=== PATIENT | female | born 1990 | race Caucasian/White ===

== ENCOUNTER 2018-05-29 09:50 | Emergency (ER) | payer BC, SELFPAY ==
[2018-05-29 09:51] VITALS: BP 108/56; PULSE 84; RESP 18; TEMP 36.8; O2SAT 99; BMI 25.4
--- NOTE | 2018-05-29 10:03 | ED.VISSUMM ---
- ER Visit Summary Date of Service: 05/29/18 Chief Complaint: Left leg swelling History of Present Illness: The patient is a 28 F who presents with left leg swelling that has been getting worse over the past 2 days. Patient states she has some mild pain in her left calf. Patient denies any paresthesias or weakness. Patient states her pain is worse with ambulation. Patient states her pain improves with rest. Patient denies any fevers or chills. Patient states she is approximately 10 weeks . Physical Examination: Vital signs are stable. Patient is afebrile. Patient is in no acute distress. Musculoskeletal exam revealed edema of the left lower leg. There is some tenderness with compression of the calf. There is no pain with dorsiflexion of the ankle. Pedal pulses are equal bilaterally. There are no sensory deficits noted. There is good range of motion of the left ankle and left knee. The remaining physical exam is within normal limits. Test Results: Venous duplex of the left lower extremity was obtained. There is no evidence of DVT. Emergency Department Course and Treatment: Patient was instructed to elevate her legs. Patient was instructed to follow-up with her primary care physician and MEDICAL STAFFING COORDINATOR as scheduled. Patient understood and was agreeable with the plan. All questions were answered. Disposition: Discharged home Impression: Left leg edema This note was generated with Snipd dictation software. It may contain incorrect words, spelling, and punctuation that were not noted in review of the chart prior to signing ED Disposition - Plan for ED Patient: Disposition: Home or Assisted Living Chief Complaint: Edema Diagnosis: Leg edema, left Instructions: ED Leg Swelling Unilateral Referrals: NOT,DEFINED [NON-STAFF] -
--- NOTE | 2018-05-29 10:06 | NURSING ---
CALLED COMPLAINT COORDINATOR ABOUT VENOUS DOPPLER ORDERED
--- NOTE | 2018-05-29 10:06 | NURSING ---
KURT MALDONADO, CALLED. SHE WILL BE HERE SHORTLY
--- NOTE | 2018-05-29 10:36 | NURSING ---
VASCULAR LAB HERE
== END 2018-05-29 11:29 | disposition home or self-care (01) ==
PROVIDERS: Emergency Provider Emergency Medicine
DX: O12.01 Gestational edema, first trimester (principal); O99.281 Endocrine, nutritional and metabolic diseases complicating pregnancy, first trimester; E03.9 Hypothyroidism, unspecified; Z3A.10 10 weeks gestation of pregnancy; Z79.899 Other long term (current) drug therapy
CPT/HCPCS: 93971; 99282

== ENCOUNTER → 2018-10-14 10:53 | Outpatient (CLI) | payer BC, SELFPAY ==
[2018-10-14 09:57] VITALS: BMI 29.7
[2018-10-14 12:17] LABS: Absolute Lymphocyte Count 2.21 X10^3/ul (0.83-4.51); Absolute Neutrophil Count 8.6 X10^3/uL (2.0-7.7); Basophil# 0.02 X10^3/uL; Basophil% 0.2 % (0-1); Eosinophils% 0.9 % (0-5); Hematocrit 34.7 % (37-47); Hemoglobin 11.5 g/dl (12.0-15.0); Lymphocyte # 2.21 X10^3/ul (4.0); Lymphocyte % 19.1 % (19-41); Mean Corp Hgb Conc 33.1 g/gl (32-36); Mean Corpuscular Hgb 31.9 pg (27.0-32.0); Mean Corpuscular Volume 96.1 fL (81-99); Mean Platelet Vol. 10.1 fl (6.2-12.0); Monocyte# 0.55 X10^3/uL; Monocyte% 4.8 % (0-10); Neutrophil # 8.64 X10^3/uL (2.7-7.7); Neutrophil % 74.7 % (47-70); Platelet Count 272 K/mm3 (150-450); RBC Distribution Width CV 13.4 % (11.6-14.6); RBC Distribution Width SD 47.1 fl (35.1-43.9); Red Blood Count 3.61 M/mm3 (4.2-5.4); White Blood Count 11.6 K/mm3 (4.4-11.0)
[2018-10-14 12:25] LABS: POSITIVE COUNT NO; POSITIVE DIFFERENTIAL NO; POSITIVE MORPHOLOGY NO
[2018-10-14 12:36] LABS: Glucose Challenge Gest 1H 50g 121 mg/dL (70-140)
== END ==
PROVIDERS: Referring Provider Obstetrics & Gynecology; Visit Provider Obstetrics & Gynecology
DX: Z34.83 Encounter for supervision of other normal pregnancy, third trimester (principal)
CPT/HCPCS: 36415; 82950; 85025

== ENCOUNTER → 2018-12-02 17:53 | Outpatient (CLI) | payer BC, SELFPAY ==
[2018-12-02 14:26] VITALS: BMI 30.8
== END ==
PROVIDERS: Referring Provider Obstetrics & Gynecology; Visit Provider Obstetrics & Gynecology
DX: Z34.90 Encounter for supervision of normal pregnancy, unspecified, unspecified trimester (principal)
CPT/HCPCS: 87081

== ENCOUNTER → 2019-01-03 15:00 | Outpatient (CLI) | payer BC, SELFPAY ==
[2019-01-02 14:05] VITALS: BMI 32.2
--- NOTE | 2019-01-03 15:02 | US_ITS ---
STUDY: SECOND AND THIRD TRIMESTER OBSTETRICAL ULTRASOUND - LIMITED REASON FOR EXAM: Female, 28 years old. growth PRIOR ULTRASOUND: None. TECHNIQUE: Transabdominal ultrasound evaluation was performed. FINDINGS: There is a single intrauterine fetus. The fetus is in a cephalic presentation. There is demonstrated cardiac activity with a heart rate of 130 bpm. There is a normal amniotic fluid volume. The largest amniotic fluid pocket measures 4 cm. The amniotic fluid index (JUDI) is 9.1 cm. The placenta is fundal in location. There are Grade 3 placental changes. The cervix is not visualized. BIOMETRY: BPD: 9.34 cm: 38 weeks, 1 days HC: 34.21 cm: 39 weeks, 4 days AC: 35.31 cm: 39 weeks, 2 days FL: 7.24 cm: 37 weeks, 1 days age by current US: 38 weeks, 4 days. NUZHAT by current US: 01/13/2019. Estimated weight: 3547 grams, +/- 518 grams. US/OB Limited With Biometrics IMPRESSION: Single live intrauterine gestation at approximately 38 weeks and 4 days based on the current ultrasound. Electronically Signed: Willian Dorado, at 15:42 EDT Tel , Service support ,
== END ==
PROVIDERS: Visit Provider Obstetrics & Gynecology
DX: O48.0 Post-term pregnancy (principal); Z3A.00 Weeks of gestation of pregnancy not specified
CPT/HCPCS: 76816

== ENCOUNTER 2019-01-06 07:40 | Inpatient (IN) | payer BC, SELFPAY ==
[2018-12-09 10:00] VITALS: BMI 30.8
[2019-01-02 14:05] VITALS: BMI 32.2
[2019-01-03 15:47] VITALS: BMI 32.2
--- NOTE | 2019-01-06 06:44 | US_ITS ---
STUDY: OBSTETRICAL ULTRASOUND - BIOPHYSICAL PROFILE REASON FOR EXAM: Female, 28 years old. WELL BEING JUDI LMP: 03/22/2018 PRIOR ULTRASOUND: None. TECHNIQUE: Transabdominal TECHNICAL QUALITY: Adequate. FINDINGS: There is a single intrauterine fetus. The fetus is in a cephalic presentation. There is demonstrated cardiac activity with a heart rate of 124 bpm. There is a normal amniotic fluid volume. The largest amniotic fluid pocket measures 2.7 cm. The amniotic fluid index (JUDI) is 8.3 cm. The placenta is fundal in location. There are Grade 0 placental changes. Age by LMP: 41 weeks, 3 days. NUZHAT by LMP: 12/27/2018. age by prior US: 39 weeks, 0 days. NUZHAT by prior US: 01/13/2019. BIOPHYSICAL PROFILE: Breathing Movements (FBM): 0 Gross Body Movements (GBM): 2 Tone (FT): 2 Amniotic Fluid Volume (AFV): 2 TOTAL SCORE: US/Biophysical Profile IMPRESSION: Normal biophysical profile of 03/25. Electronically Signed: Leny Horta, at 9:14 EDT Tel , Service support ,
[2019-01-06 07:02] VITALS: BMI 32.6
[2019-01-06 07:54] VITALS: O2SAT 94
[2019-01-06] MEDS: 0.9% Saline Lock 10 ML Syringe IV (09:15)
[2019-01-06 09:37] LABS: Absolute Lymphocyte Count 2.38 X10^3/ul (0.83-4.51); Absolute Neutrophil Count 8.3 X10^3/uL (2.0-7.7); Basophil# 0.04 X10^3/uL; Basophil% 0.3 % (0-1); Eosinophil# 0.08 X10^3/uL; Eosinophils% 0.7 % (0-5); Hematocrit 37.2 % (37-47); Hemoglobin 12.6 g/dl (12.0-15.0); Lymphocyte # 2.38 X10^3/ul (4.0); Lymphocyte % 20.4 % (19-41); Mean Corp Hgb Conc 33.9 g/gl (32-36); Mean Corpuscular Hgb 33.2 pg (27.0-32.0); Mean Corpuscular Volume 97.9 fL (81-99); Mean Platelet Vol. 11.6 fl (6.2-12.0); Monocyte# 0.83 X10^3/uL; Monocyte% 7.1 % (0-10); Neutrophil # 8.29 X10^3/uL (2.7-7.7); Platelet Count 246 K/mm3 (150-450); RBC Distribution Width CV 13.7 % (11.6-14.6); RBC Distribution Width SD 46.9 fl (35.1-43.9); White Blood Count 11.7 K/mm3 (4.4-11.0)
[2019-01-06 09:38] LABS: Differential Indicated SCAN CRITERIA MET; POSITIVE COUNT NO; POSITIVE DIFFERENTIAL NO; POSITIVE MORPHOLOGY YES
--- NOTE | 2019-01-06 20:41 | PCM.HP.OB ---
- Problem List (1) Post term at 41 weeks gestation Status: Acute (2) Supervision of normal Status: Acute Qualifiers: Comment: PRR NUZHAT 12/27/18 girl PC Kj Lefty (3) Status: Acute Qualifiers: Comment: genetic, carrier, and ntd screening declined. (4) Previous delivery affecting Status: Acute Comment: oligo at 38 wk desires TOLAC- consent signed, 75% chance of success History Date of Admission: 01/05/19 Final NUZHAT: 12/26/18 Gestational age: 41 Weeks and 4 Days History of this : This is a 28 year-old, at 41 weeks 4 days gestational age presented initially for decreased movement. Patient has been seen twice in the office this week and medical advice was given was to proceed with a repeat at 41 weeks and the patient refused AGAINST MEDICAL ADVICE proceed with expectant management. Growth ultrasound and NST were reassuring. I counseled the patient that the likelihood of success goes down after 40 weeks and particularly after 41 in the risks to increase and this was the reasoning for my recommendation. Patient voiced good understanding and her to let her were present at each time patient counseling was reviewed. Patient was scheduled for at 4:00 yesterday and at the time of to include she declined to come in due to her starting contractions. She was informed this was AGAINST MEDICAL ADVICE and she still declined. She presented this morning with decreased movement and on the monitor the baby had moderate variability and was reactive but seen to have 2 late decelerations. BPP was 6 out of 8 and the fluid level was 8 cm. Patient was having regular contractions and had some bloody show and had may change to 1 to 2 cm. She requested no intervention and refused any pelvic exams throughout the day until 5 PM. At 5 PM she was noted to make no cervical change and contractions had decreased in intensity and frequency. Patient refused to speak directly with the physician requested that all discussions go through her and her Dula. Patient again declined section AGAINST MEDICAL ADVICE and requested membrane sweeping. I performed this and she was found to be 4 cm after the membrane sweeping. Medical History: Medical History (Last Reviewed 01/03/19 @ 15:47 by Carmel Marin) Thyroid disorder E07.9 Surgical History: Surgical History (Last Reviewed 01/03/19 @ 15:47 by Carmel Marin) delivery delivered O82 History of eyelid surgery Z98.890 History of tonsillectomy Z90.89 History of wisdom tooth extraction, class II edentulism K08.492 Allergies No Known Allergies Allergy (Verified 01/06/19 07:02) Home Medications: Home Medications Vits [Prenatabs FA ] 1 tab PO DAILY 05/31/15 Levothyroxine Sodium [Synthroid] 75 mcg PO DAILY 01/06/19 Smoking Status: Never smoker Alcohol: None Number of Fetus(es): 1 Heart Tracin-130 moderate variability several isolated decels, overall cat I tracing toco: regular to periods of irregularity History Past Pregnancies: Past Pregnancies Pregancy History 2 Elective abortions Hx Para 1 Spontaneous abortions Hx # Term Pregnancies Ectopic pregnancies Hx # Pregnancies Multiple births # of living children Past Pregnancies Del. Date Name GA/Weeks Outcome Route Bth Weight Infant Gen Labor Lgth Anesthesia Del [facility] Provider FOB Unknown 2014 Kj 38 live - full term Leno/SM Delivery Date: On 08/16/18 @ 16:22 Fiorella Goodman oligo, NRFHTs Labs: Mom's Labs & Results 01/06/19 01/06/19 09:10 09:10 WBC 11.7 H RBC 3.80 L Hgb 12.6 Hct 37.2 MCV 97.9 MCH 33.2 H MCHC 33.9 RDW 13.7 RDW Differential 46.9 H Plt Count 246 MPV 11.6 Immature Gran % (Auto) 0.500 Neut % (Auto) 71.0 H Lymph % (Auto) 20.4 [place] % (Auto) 7.1 Eos % (Auto) 0.7 Baso % (Auto) 0.3 Absolute Neuts (auto) 8.3 H Absolute Lymphs (auto) 2.38 Total Counted Not Reportable Differential Comment COMMENT Blood Type A POSITIVE Antibody Screen NEGATIVE Course Did the patient receive Yes care? Labs Blood Type: A RH: POSITIVE RPR/VDRL/Syphilis Nonreactive Rubella status Immune HbSAg Negative Date Done: 06/10/18 Chlamydia Negative Gonorrhea Negative HIV/AIDS Non-Reactive Group B Strep: Negative Current Obstetrical History Gestational Diabetes No Incompetent Cervix No Infertility No IUGR No Macrosomia No Hypertension/Pre-eclampsia No Placenta Previa/Abruption No PTL/PROM No Uterine anomaly No Oligohydramnios No Polyhydramnios No Multiple gestation No Past Medical History Asthma No Diabetes No Hypertension No Heart disease No Mitral valve prolapse No Neurologic/Seizure disorder/ No Migraines Kidney disease No Liver disease No Varicosities No Clotting disorders/Hx of DVT No Thyroid Dysfunction Yes: hypothyroid Other medical diseases No Psychiatric disorders Yes: anxiety Major trauma No Abnormal PAP smear No Sleep apnea No Mammogram in the last 2 years No Enter DETAILS of medical Nystagmus, Fibroids history Social History Marital Status: Alleged father Shiraz Hx Smoking No Smoking Status Never smoker How long have you used n/a substances (years)? What date/time did you last n/a use any of the above? Have you had any previous n/a inpatient or outpatient treatment Expected Delivery Method: Review of Systems Constitutional: Denies: Fever, Malaise Eyes: Denies: Blurred vision, Vision Change HEENT: Denies: Head Aches, Visual Changes Cardiovascular: Denies: Chest Pain, Palpitations Respiratory: Denies: Cough, Shortness of Breath, Wheezing Gastrointestinal: Reports: Abdominal Pain. Denies: Diarrhea, Nausea, Vomiting Genitourinary: Denies: Dysuria, Hematuria Gynecological: Reports: Vaginal bleeding, Vaginal discharge Musculoskeletal: Denies: Joint Pain, Muscle pain Skin: Denies: Lesions, Rash Neurological: Denies: Blurred vision, Focal weakness, Headaches Psychiatric: Denies: Anxiety, Depression Endocrine: Denies: Heat/ Cold Intolerance Hematologic/ Lymphatic: Denies: Easy Bruising, Easy Bleeding Physical Exam Vitals: Vital Signs Pulse Ox 94 01/06/19 07:54 General: Alert, No apparent distress, Non-Cooperative HEENT: Atraumatic, Normocephalic. Negative for: Thyromegaly, Lymphadenopathy Cardiovascular: Regular rate Lungs: Normal air movement Abdomen: Soft, Non Tender, Gravid PHYSICAL THERAPY NURSE: Normal external genitalia. Negative for: Vulvar lesions Estimated gestational size: Small for gestational age Presentation: Cephalic Cervix Dilation (cm): 4 Station: -3 Effacement (%): 70 Assessment/Plan All Active Problems (Last Reviewed 01/03/19 @ 15:47 by Carmel Marin) Post term at 41 weeks gestation (Acute) Supervision of normal (Acute) (Acute) Previous delivery affecting (Acute) This is a 28 year-old, at 41 weeks gestational age presents with deceleration, declining RLTCS despite medical advice. Due to the patient's refusal of my initial recommendations, I am trying to be respectful of her wishes and will proceed with expectant management. Membranes were swept to the patient's request to try and induce labor. After discussing with her in April would recommend that if she makes no cervical change after 12 hours she consider induction of labor with Pitocin and rupture of membranes.
[2019-01-07] VITALS (23 sets, daily range): BP systolic 92–119; BP diastolic 44–86; PULSE 61–98; RESP 16–20; TEMP 36.3–37.1; O2SAT 96–100
[2019-01-07] MEDS: 0.9% Saline Lock 10 ML Syringe IV ×2 (01:15→08:16)
--- NOTE | 2019-01-07 01:30 | PCM.PN.BLA ---
Progress Note heart rate baseline increasing to 150s-160s. Currently moderate variability with positive acceleration. One late deceleration. Cervix unchanged from membrane sweeping. 4/60/-3 and not engaged in the pelvis. Patient assessment no change in pain score and no specific pain located in the lower abdomen. Abdominal exam shows no significant increased tenderness in the lower uterine segment. Patient refuses bedside discussion so discussion with Candia includes recommendation for intervention at this point. Recommend starting with IV fluids and if there is no change in baseline I will not start Pitocin due to tachycardia would recommend proceeding with a primary . Candia to discuss with patient.
--- NOTE | 2019-01-07 01:33 | PN_ITS ---
Progress Note heart rate baseline increasing to 150s-160s. Currently moderate variability with positive acceleration. One late deceleration. Cervix un changed from membrane sweeping. 4/60/-3 and not engaged in the pelvis. Patient assessment no change in pain score and no specific pain located in the lower abdomen. Abdominal exam shows no significant increased tenderness in the lower uterine segment. Patient refuses bedside discussion so discussion with Candia includes recommendation for intervention at this point. Recommend starting with IV fluids and if there is no change in baseline I will not start Pitocin due to tachycardia would recommend proceeding with a primary . Candia to discuss with patient.
[2019-01-07] MEDS: Lactated Ringers 1,000 ML 50 ML IV ×2 (02:46→08:51)
--- NOTE | 2019-01-07 02:51 | PCM.PN.BLA ---
Progress Note after IVFs fht now 120-130 moderate variability reactive cat I tracing. patient still refusing intervention at this point. continue expectant management.
--- NOTE | 2019-01-07 07:31 | PN_ITS ---
Progress Note discussed with patient and vice president of contracts and - patient ready and agreeable to section now. will proceed with cs. cat I tracing.
--- NOTE | 2019-01-07 07:31 | PCM.PN.BLA ---
Progress Note discussed with patient and volunteer services supervisor and - patient ready and agreeable to section now. will proceed with cs. cat I tracing.
--- NOTE | 2019-01-07 07:35 | OP.PCM_ITS ---
Problem List (1) Post term at 41 weeks gestation Status: Acute (2) Supervision of normal Status: Acute Qualifiers: Comment: PRR NUZHAT 12/27/18 girl PC Kj Lefty (3) Status: Acute Qualifiers: Comment: genetic, carrier, and ntd screening declined. (4) Previous delivery affecting Status: Acute Comment: oligo at 38 wk desires TOLAC- consent signed, 75% chance of success Report of Operation Date of Procedure: 01/07/19 Pre-Operative Diagnosis: previous Post-Operative Diagnosis: same plus CPD Surgery/Procedure Performed:: RLTCS Description of Surgical Findings:: normal uterus, cpd, head not engaged, OP forming machine upkeep mechanic: Audelia Arias Type of Anesthesia:: Spinal Special Medications: none Specimen's removed: female Drains: hayden Estimated Blood Loss (mL): 700 Fluids Replaced: crystalloid Description of Procedure: Patient presented for decreased movement initially after multiple occasions of going AGAINST MEDICAL ADVICE when recommended by the physician to proceed with section. Patient was having contractions and requested expectant management. After 9 hours there was no cervical change despite contractions. Patient still declined section and therefore was offered to the patient to perform membrane sweeping which was done which made the patient a proximally 4 cm. Patient had contractions throughout the night but after 12/12 hours there is still no cervical change and no onset of active labor therefore the patient was finally amenable to proceeding with a repeat low transverse . Spinal anesthesia was placed without difficulty. Hayden catheter was placed. The patient was placed in the dorsal supine position with leftward tilt. Patient was prepped and draped in the normal sterile fashion. Pfannenstiel skin incision was made with the scalpel and carried through to the underlying layer of fascia with the scalpel. Fascia was nicked in the midline and the incision extended laterally. The rectus bellies were dissected off superiorly and inferiorly with out complication both sharply and bluntly. The peritoneum was entered digitally. The incision was stretched and a low transverse uterine incision was made with the scalpel. The 's head was delivered atraumatically followed by the anterior and posterior shoulders wi thout complication the rest of the delivered. The cord was clamped and cut and the was handed off to awaiting nurse. The placenta was delivered spontaneously immediately following and was noted to be intact and have a three- vessel cord. The uterus was exteriorized cleared of all clots and debris, and the incision was closed in a double layer closure using #1 Monocryl. The uterus was returned to the maternal abdomen and gutters were cleared of all clots and debris. The ovaries and fallopian tubes were noted to be within normal limits. The peritoneum was closed with 3-0 Monocryl in a running fashion. Fascia was closed with 0 PDS in a running fashion. Subcutaneous tissue was copiously irrigated and the skin was closed with 3-0 Monocryl in a subcuticular fashion. Mepilex dressing were applied without complication. Patient was taken to recovery in stable condition. Grafts/Implants Used: none - Complications none
[2019-01-07] MEDS: Sodium Citrate/Citric Acid 30 ML UDC PO (08:47)
[2019-01-07] MEDS: Cefazolin 2 GM in 0.9% Normal Saline 100 ML IV (09:05)
[2019-01-07] MEDS: Oxytocin 30 units/NS 500 ml 30 UNITS/500 ML IV.SOLN 167 UNITS IV (09:22)
[2019-01-07] MEDS: Ketorolac 30 MG/ML Syringe IV ×3 (09:35→21:19)
[2019-01-07] MEDS: Ondansetron 4 MG/2 ML Vial IV ×2 (09:38→14:13)
[2019-01-07] MEDS: Lactated Ringers 1,000 ML 100 ML IV ×2 (10:05→15:19)
[2019-01-08] VITALS (12 sets, daily range): BP systolic 94–109; BP diastolic 50–69; PULSE 70–80; RESP 16–18; TEMP 36.3–36.9; O2SAT 97–99
[2019-01-08] MEDS: Lactated Ringers 1,000 ML 100 ML IV (00:07)
[2019-01-08] MEDS: Ketorolac 30 MG/ML Syringe IV (03:12)
[2019-01-08] MEDS: Levothyroxine 75 MCG Tablet PO (05:25)
[2019-01-08 06:15] LABS: Hematocrit 27.1 % (37-47); Hemoglobin 8.8 g/dl (12.0-15.0); Mean Corp Hgb Conc 32.5 g/gl (32-36); Mean Corpuscular Hgb 32.7 pg (27.0-32.0); Mean Corpuscular Volume 100.7 fL (81-99); Mean Platelet Vol. 11.1 fl (6.2-12.0); Platelet Count 166 K/mm3 (150-450); RBC Distribution Width SD 49.1 fl (35.1-43.9); Red Blood Count 2.69 M/mm3 (4.2-5.4); White Blood Count 12.2 K/mm3 (4.4-11.0)
[2019-01-08 06:17] LABS: Scan Indicated on CBC? Y/N NO
--- NOTE | 2019-01-08 08:04 | PCM.PN.OB ---
Subjective: doing well no complaints pain controlled no CP SOB N V ambulating well tolerating po lochia moderate, going well - Physical Exam General: Alert, Oriented x3 Vital Signs Temp Pulse Resp BP Pulse Ox 97.3 F L 78 18 97/51 L 99 01/08/19 03:10 01/08/19 05:31 01/08/19 05:31 01/08/19 03:10 01/08/19 05:31 Oxygen Delivery Method Room Air Weight: 167 lb 1.766 oz Body Mass Index (BMI) 32.6 Intake and Output for Last 24 Hours 01/06/19 01/07/19 01/08/19 23:59 23:59 23:59 Intake Total 3200 / 3200 7469 / 7469 1475 / 1475 Output Total 650 / 650 2650 / 2650 1650 / 1650 Balance 2550 / 2550 4819 / 4819 -175 / -175 Laboratory Tests Past 24 Hrs 01/08/19 05:40 WBC 12.2 H RBC 2.69 L Hgb 8.8 L Hct 27.1 L MCV 100.7 H MCH 32.7 H MCHC 32.5 RDW 14.0 RDW Differential 49.1 H Plt Count 166 MPV 11.1 Medical Necessity - Tobacco Use Smoking Status: Never smoker Assessment/Plan All Active Problems (Last Reviewed 01/03/19 @ 15:47 by Carmel Marin) Post term at 41 weeks gestation (Acute) Supervision of normal (Acute) (Acute) Previous delivery affecting (Acute) s/p LTCS PPD # 1 1. routine post care 2. breast feeding- support given 3. rh positive 4. rubella immune
[2019-01-08] MEDS: oxyCODONE 5 MG Tablet PO ×5 (09:48→23:34)
[2019-01-08] MEDS: Senna/Docusate Sodium 1 Tablet PO (09:49)
[2019-01-08 12:18] LABS: Hematocrit 29.4 % (37-47); Hemoglobin 9.6 g/dl (12.0-15.0); Mean Corp Hgb Conc 32.7 g/gl (32-36); Mean Platelet Vol. 10.3 fl (6.2-12.0); Platelet Count 199 K/mm3 (150-450); RBC Distribution Width CV 14.1 % (11.6-14.6); RBC Distribution Width SD 50.2 fl (35.1-43.9); Red Blood Count 2.91 M/mm3 (4.2-5.4)
[2019-01-08 12:20] LABS: Scan Indicated on CBC? Y/N NO
[2019-01-08] MEDS: Naproxen 250 MG Tablet PO ×2 (14:03→21:50)
[2019-01-09 01:41] VITALS: BP 112/56; PULSE 70; RESP 18; TEMP 36.4
[2019-01-09] MEDS: Naproxen 250 MG Tablet PO ×2 (05:42→13:56)
[2019-01-09] MEDS: Levothyroxine 75 MCG Tablet PO (05:42)
--- NOTE | 2019-01-09 07:34 | PCM.PN.OB ---
Subjective: doing well no complaints pain controlled no CP SOB N V ambulating well tolerating po lochia moderate, going well. Plans home today - Physical Exam General: Alert, Oriented x3 Abdomen: Soft, Non-Distended, - - Minimal tenderness with exam. FF below U. Dressing dry and intact Vital Signs Temp Pulse Resp BP Pulse Ox 97.6 F L 70 18 112/56 L 98 01/09/19 01:41 01/09/19 01:41 01/09/19 01:41 01/09/19 01:41 01/08/19 09:25 Oxygen Delivery Method Room Air Weight: 167 lb 1.766 oz Body Mass Index (BMI) 32.6 Intake and Output for Last 24 Hours 01/07/19 01/08/19 01/09/19 23:59 23:59 23:59 Intake Total 7469 / 7469 1714 / 1714 Output Total 2650 / 2650 3750 / 3750 Balance 4819 / 4819 -2036 / -2035 Laboratory Tests Past 24 Hrs 01/08/19 12:00 WBC 14.0 H RBC 2.91 L Hgb 9.6 L Hct 29.4 L MCV 101.0 H MCH 33.0 H MCHC 32.7 RDW 14.1 RDW Differential 50.2 H Plt Count 199 MPV 10.3 Medical Necessity - Tobacco Use Smoking Status: Never smoker Assessment/Plan All Active Problems (Last Reviewed 01/03/19 @ 15:47 by Carmel Marin) Post term at 41 weeks gestation (Acute) Supervision of normal (Acute) (Acute) Previous delivery affecting (Acute) s/p LTCS PPD # 2 1. routine post care 2. breast feeding- support given 3. rh positive 4. rubella immune 5. Home today.
--- NOTE | 2019-01-09 07:36 | PCM.DC.SUM ---
Discharge Date and Diagnosis Date of Admission: 01/05/19 Hospital Course and Treatment Consultations 01/06/19 07:44 Consult: Anesthesia Routine Comment: Reason For Exam: labor Operations: - - LTRCS FTP Summary of Care Provided: The patient is a 28 year old F [] Patient underwent section with routine recovery, return of normal bowel and bladder function. Ambulating, voiding and tolerating PO. Stable for discharge home POD #.2. - Physical Exam Vital Signs Temp Pulse Resp BP Pulse Ox 97.6 F L 70 18 112/56 L 98 01/09/19 01:41 01/09/19 01:41 01/09/19 01:41 01/09/19 01:41 01/08/19 09:25 Oxygen Delivery Method Room Air Weight: 167 lb 1.766 oz Body Mass Index (BMI) 32.6 Intake and Output for Last 24 Hours 01/07/19 01/08/19 01/09/19 23:59 23:59 23:59 Intake Total 7469 / 7469 1714 / 1714 Output Total 2650 / 2650 3750 / 3750 Balance 4819 / 4819 -2036 / -2036 Laboratory Tests Past 24 Hrs 01/08/19 12:00 WBC 14.0 H RBC 2.91 L Hgb 9.6 L Hct 29.4 L MCV 101.0 H MCH 33.0 H MCHC 32.7 RDW 14.1 RDW Differential 50.2 H Plt Count 199 MPV 10.3 Home Medications: Medications to take at Discharge Vits [Prenatabs FA ] 1 tab PO DAILY 05/31/15 Levothyroxine Sodium [Synthroid] 75 mcg PO DAILY 01/06/19 Primary Care Physician: Care Physician,No Primary [Primary Care Provider] - Medical Necessity - Tobacco Use Smoking Status: Never smoker Meaningful Use Info Meaningful Use Diagnoses (Choose all that apply): None applicable
--- NOTE | 2019-01-09 07:43 | PCM.DCCSEC ---
Additional Instructions: If you experience any of the following, contact your healthcare provider. Bleeding that soaks a pad every hour for 2 hours Fever 100.4 or higher Unrelieved incision or abdominal pain Swelling, redness, discharge or bleeding from your incision or episiotomy site Your incision begins to separate Problems urinating (including inability to urinate or burning while urinating). Visual changes Severe headache Flu-like symptoms Pain or redness in one of both of your breasts Pain, warmth, tenderness or swelling in your legs, especially the calf area Frequent nausea and vomiting Symptoms of depression or anxiety If you experience any of the following, call 911 or go to the nearest Emergency Room. Chest pain Problems breathing Seizure activity Partial or complete paralysis of a body part, slurred speech, weakness or drooping of the face, or a sudden inability to walk or hold your balance Allergies/Adverse Reactions: Allergies No Known Allergies Allergy (Verified 01/06/19 07:02) Medications to take at Discharge Vits [Prenatabs FA ] 1 tab PO DAILY 05/31/15 Levothyroxine Sodium [Synthroid] 75 mcg PO DAILY 01/06/19 Naproxen 500 mg PO BID PRN #60 tablet 01/09/19 Oxycodone HCl/Acetaminophen [Percocet 5/325] 1 - 2 tablet PO Q4H PRN PRN 7 Days #28 tablet 01/09/19 The following prescriptions were given: Oxycodone HCl/Acetaminophen [Percocet 5/325] 1 - 2 tablet PO Q4H PRN PRN 7 Days #28 tablet PRN Reason: Pain Naproxen 500 mg PO BID PRN #60 tablet PRN Reason: Pain Follow-Up: Call to make an appointment with your doctor for an incision check in 1-2 weeks. You will also need a 6 week post- follow up appointment. Test results from this visit will be discussed in further detail at your follow-up appointment, if applicable. Primary Care Physician: Care Physician,No Primary [Primary Care Provider] -
--- NOTE | 2019-01-09 07:44 | DCINST_ITS ---
Additional Instructions: If you experience any of the following, contact your healthcare provider. * Bleeding that soaks a pad every hour for 2 hours * Fever 100.4 or higher * Unrelieved incision or abdominal pain * Swelling, redness, discharge or bleeding from your incision or episiotomy site * Your incision begins to separate * Problems urinating (including inability to urinate or burning while urinating). * Visual changes * Severe headache * Flu-like symptoms * Pain or redness in one of both of your breasts * Pain, warmth, tenderness or swelling in your legs, especially the calf area * Frequent nausea and vomiting * Symptoms of depression or anxiety If you experience any of the following, call 911 or go to the nearest Emergency Room. * Chest pain * Problems breathing * Seizure activity * Partial or complete paralysis of a body part, slurred speech, weakness or drooping of the face, or a sudden inability to walk or hold your balance Allergies/Adverse Reactions: Allergies No Known Allergies Allergy (Verified 01/06/19 07:02) Medications to take at Discharge Vits [Prenatabs FA ] 1 tab PO DAILY 05/31/15 Levothyroxine Sodium [Synthroid] 75 mcg PO DAILY 01/06/19 Naproxen 500 mg PO BID PRN #60 tablet 01/09/19 Oxycodone HCl/Acetaminophen [Percocet 5/325] 1 - 2 tablet PO Q4H PRN PRN 7 Days #28 tablet 01/09/19 The following prescriptions were given: Oxycodone HCl/Acetaminophen [Percocet 5/325] 1 - 2 tablet PO Q4H PRN PRN 7 Days #28 tablet PRN Reason: Pain Naproxen 500 mg PO BID PRN #60 tablet PRN Reason: Pain Follow-Up: Call to make an appointment with your doctor for an incision check in 1-2 weeks. You will also need a 6 week post- follow up appointment. Test results from this visit will be discussed in further detail at your follow- up appointment, if applicable. Primary Care Physician: Care Physician,No Primary [Primary Care Provider] -
[2019-01-09] MEDS: Senna/Docusate Sodium 1 Tablet PO (09:14)
[2019-01-09 09:34] VITALS: BP 101/55; PULSE 76; RESP 18; TEMP 36.6
[2019-01-09] MEDS: oxyCODONE 5 MG Tablet PO (10:55)
--- NOTE | 2019-01-09 11:40 | CASEMGMT ---
Social Work Assessment Labor and Delivery Unit Date of Referral: 01/07/2019 Time of Referral: 173 Referred By: Dr. Goodman Date of Intervention: 01/09/2019 Time of Intervention: 1140 Reason for Referral: history of maternal anxiety History obtained from: medical record, mother of baby (MOB) and father of baby (FOB) Household composition: MOB and FOB live in own home. No reported or indicated safety concerns. Patient's parent/guardian status: MOB Maria C Madden (age 30) and FOB Shiraz Madden have been since 2012 but have been sweethearts since middle school. No reports or indication of domestic violence; MOB denied history of such also during admission assessment. MOB and FOB now have 2 children together: Kj born in May of 2015 and Nikolas born 01-07-2021. Medical History: CECY is G2, P1 to 2 after delivering baby girl Nikolas this admission. care started at 8 weeks through the [facility] office then transferred care to Dr. Goodman at 21 weeks. Baby Nikolas was born at almost 42 weeks gestation, Weight 6 pounds 4 ounces, Apgars 8 and 9 at 1 an 5 minutes of life. Educational Status: College education. No issues reported or indicated regarding reading, writing, or learning comprehension. 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 FOSebastián works fulltime as well; is a welder fitter arc. Supplies: It is reported that all necessary baby supplies are in place including safe sleep space for baby, car seat, clothing, diapers, wipes, and getting a breast pump. Childcare/Caregiver(s): MOB and FOB. Have an established head of digital when both parents are working. Transportation: No reported or indicated issues with transportation. Programs/Agencies Involved: No agency involvement. MOB reports to be aware of community agencies through employment at [employer]. MOB reports connected with a counselor Fiorella Crystal through [facility]. Behavioral Health Issues: Mental Health History: Record indicates MOB has history of anxiety, no medication at this time, and also a history of depression. MOB reports not sure if what experienced after first delivery was officially depression, but endorsed high emotionality after , dealing with having a caesarian section, breast feeding not going so well, and FOB having to be gone from home a lot due to work. MOB reports cried a lot. MOB denies that emotions ever impacted care of self or of the children. MOB reports to feel in a better place after this delivery as MOB reports to feel more prepared on what to expect, breast feeding is going well, and has current involvement with a counselor who is supportive. No reports of any history of suicidal thoughts, intent, or attempts. Substance Use History: MOB denies. Alcohol use is social but not in . No tobacco history either. Drug Screens: negative drug screen on 05-17-2018 when MOB initiated care. Family/Social Stressors: MOB did have mind set on how wanted the delivery process to go, that wanted to be able to labor and deliver vaginally rather than have another caesarian section. MOB and FOB indicate that MOB had 4 different dates set, with MOB being focused on wanting to proceed with natural labor process. MOB reports the first delivery via was unexpected and not as planned, so stressful. MOB also shared personal history of various family members who have had dealings with the medical field over the years (a sister who from cancer, a brother with brain damage from a car accident and then own father having chronic heart issues), which may have impacted MOB's perspective on the medical field and importance to MOB on being able to make own decisions. MOB indicates that although wanted to deliver vaginally, once MOB was able to make the decision and come to terms with need for caesarian section, MOB was okay with this and felt was the ?right decision? to deliver the baby before the scenario became an emergency. Support Systems: MOB identified FOB, MOB?s parents and MOB?s in laws as good supports. FOB will be home for a week to help with transition home, and both sets of parents are close by and willing to help. MOB had a automobile body worker during the latter part of the , identifies this person as a support and a person available during the time period. MOB identified counselor as another support. Depression/Shaken Baby/Safe Sleeping : Educated to depression and anxiety, risks for such and importance of keeping up with personal care, letting others know if symptoms are present. MOB reports for coping to talk, take some ?me time? such as taking a bath or just having a minute by self; likes to laugh and watch comedies. MOB and FOB express awareness of safe sleeping and shaken baby prevention. ASSESSMENT: Met with MOB and FOB together. Both engaged in conversation, nondefensive and talkative. MOB reports that although MOB was adamant about how wanted to proceed with delivery, and knows that own thoughts were not always aligned with the doctors, that overall felt the delivery experience to be a positive one at the hospital. MOB reports to know that the doctor has a job to do, and that the doctor was just doing her job in giving input on medical expertise. MOB reports to feel was supported by the automobile body worker, FOB, and the nurses during the labor process; as well as after delivery. MOB reports to feel this delivery experience was more positive than first experience, relating that helped to have had input into how things went with delivery. MOB reports intent to maintain with a counselor in the period, plans to make follow up appointment for within the next one to two weeks. MOB reports to have needed supplies for baby and to have adequate support. MOB held appropriate eye contact, mood and affect congruent and appropriate to content discussed. FOB presenting as supportive to MOB during social work visit and thanked this play writer for coming to talk through things. MOB and FOB accepting of depression packet which also includes information on supports available for both MOB and FOB. PLAN: MOB and baby to home with support from family. depression information has been given, MOB reports awareness on where to turn for social service supports in the area and is already linked with mental health counselor. No other services requested or indicated. -BHARGAV [place], CASE PACKER
== END 2019-01-09 14:00 | disposition home or self-care (01) | DRG 788 ==
LOC: WPOUT 07:47 → WP 09:47
PROVIDERS: Admitting Provider Obstetrics & Gynecology; Referring Provider Obstetrics & Gynecology; Visit Provider Obstetrics & Gynecology
PROC: (CPT 59514; principal; 2019-01-05 15:45)
DX: O48.0 Post-term pregnancy (principal); Z3A.41 41 weeks gestation of pregnancy; O76 Abnormality in fetal heart rate and rhythm complicating labor and delivery; O99.284 Endocrine, nutritional and metabolic diseases complicating childbirth; E03.9 Hypothyroidism, unspecified; Z37.0 Single live birth
CPT/HCPCS: 59025; 59050; 76818; 85025; 85027; 86850; 86900; 99218; J7120; A4216; G0378; J2405

== ENCOUNTER → 2019-09-22 10:03 | Outpatient (CLI) | payer OTHER, SELFPAY ==
[2019-02-20 15:26] VITALS: BMI 32.6
[2019-09-22 12:36] LABS: Free T3 2.6 pg/mL (2.18-3.98); T4 Free Direct 1.15 ng/dL (0.76-1.46)
== END ==
PROVIDERS: Family Provider Family Medicine; PCP Family Medicine; Visit Provider Family Medicine
DX: E03.9 Hypothyroidism, unspecified (principal)
CPT/HCPCS: 36415; 84439; 84443; 84481

== ENCOUNTER 2019-09-27 08:02 | Emergency (ER) | payer OTHER, SELFPAY ==
[2019-02-20 15:26] VITALS: BMI 32.6
[2019-09-27 08:04] VITALS: BP 129/69; PULSE 82; RESP 17; TEMP 36.4; O2SAT 100; BMI 27.2
--- NOTE | 2019-09-27 08:28 | ED.VIS.GEN ---
History of Present Illness Chief Complaint: Other, Pain/Inj Informant: Patient Onset: Weeks Current Severity: Mild Narrative: Burning tingling sensation to the entire face for about a week and a half That symptoms for about a week and a half, she also complains of intermittent right ear pain, she has had no change in vision no headache no numbness weakness paresthesias, able to speak think execute her normal activities vision is normal no sore throat no fever no cough she has Abbey's thyroiditis and she only takes thyroid medicine and vitamin supplements, works as a social security specialist, saw her physicians for this recently had outpatient lab work-up that is pending no diagnosis was established presents because the symptoms have persisted have not changed She has no history of DC PE stroke seizure cardiovascular disease of any kind eating and drinking well review of systems are negative she takes her fingers and draws them across her forehead into her cheeks complaining of the numbness sensation to this area Past Medical History - Allergies and Home Meds Allergies/Adverse Reactions: Allergies No Known Allergies Allergy (Verified 09/27/19 08:03) Primary Care Physician: Carmelina Caraballo MD [Primary Care Provider] - Past Medical History: - Smoking Status: Never smoker Review of Systems ROS: - Hypothyroidism General: Reports: - - Only complaint is the facial tingling and numbness sometimes she says it feels like her face is hot. Denies: Chills, Fever, Sweats Eyes: Denies: Visual changes - bilaterally, Diplopia ENT: Denies: Rhinorrhea, Sore throat Cardiovascular: Denies: Chest pain, Palpitations Respiratory: Denies: Dyspnea, Cough, Dyspnea on exertion Gastrointestinal: Denies: Abdominal pain, Nausea, Vomiting, Diarrhea, Melena, Hematochezia Genitourinary: Denies: Dysuria, Hematuria, Frequency Musculoskeletal: Denies: Back pain, Extremity Pain Skin: Denies: Rash, Wounds Neurological: Denies: Headache, Weakness, Numbness Physical Exam Vital Signs/Narrative: Vital Signs Temp Pulse Resp BP Pulse Ox 09/27/19 08:04 97.6 F L 82 17 129/69 H 100 General: Well nourished, Well developed, No Acute Distress Head: Normocephalic, Atraumatic, - - The HEENT exam is unremarkable sensation is intact, her nose and throat eyes normal mouth normal neck supple ears normal the skin is normal the head is normal Eyes: Perrl, EOMI ENT: Moist mucous membranes, No rhinorrhea Neck: Supple, Nontender Cardiovascular: Regular rate, Regular rhythm, No murmurs Respiratory: No distress, CTA bilaterally, Chest nontender Abdomen: Soft, Nontender, Nondistended, Normal bowel sounds Back: Nontender, Normal Inspection Extremities: Nontender, No edema Skin: Normal color, No rash Neurological: Alert, Oriented x3, Cranial nerves II-XII grossly intact, Normal Strength, Normal Sensation, - - Neurologic exam is completely unremarkable and normal NIH 0 Psychological: Normal affect, Normal Mood Diagnostic/Tx/Re-eval - Medical Decision Making Symptoms for about a week and a half etiology of the above is unclear she did have an outpatient work-up with her providers the results of those tests are pending, I explained her the exact etiology of the symptoms are unclear I discussed the differential I explained we could do an ED work-up to include a CT, she deferred all of that indicating she did not feel CT would be necessary and she just had lab test done through her doctor's office, at this time she is comfortable discharge home to follow-up with her outpatient providers for further management Home stable Final impression facial tingling of burning etiology unclear ED Disposition - Plan for ED Patient: Diagnosis: Facial numbness Instructions: Measuring Your Pain, Medication for Pain Referrals: Carmelina Caraballo MD [Primary Care Provider] -
== END 2019-09-27 08:46 | disposition home or self-care (01) ==
PROVIDERS: Emergency Provider Emergency Medicine; Family Provider Family Medicine; PCP Family Medicine
DX: R20.0 Anesthesia of skin (principal); E06.3 Autoimmune thyroiditis; Z79.899 Other long term (current) drug therapy
CPT/HCPCS: 99282

== ENCOUNTER → 2019-10-28 08:33 | Outpatient (CLI) | payer OTHER, SELFPAY ==
--- NOTE | 2019-10-28 08:38 | MRI_ITS ---
STUDY: MRI BRAIN WITH AND WITHOUT CONTRAST REASON FOR EXAM: Female, 29 years old. LEFT SCALP PAIN, DYSESTHSIA -- increase numbness in extremities, episode of numbness face and head 09/27/2019 TECHNIQUE: Standardized multiplanar fat and water weighted pulse sequences were obtained. IV dotarem 13ml was administered for the contrast portion of the examination. COMPARISON: None. FINDINGS: Normal size of the ventricles and extra-axial spaces for the patient''s age. Normal white matter tracts of the supratentorial brain. Normal bilateral basal ganglia. Normal thalami. There is no extra-axial fluid accumulation. Normal flow voids within the major intracranial circulation suggesting patency by spin echo criteria. Normal venous enhancement. There is no enhancing intra-axial or extra-axial abnormality. Normal sella turcica, pituitary gland, infundibular stalk, optic chiasm and hypothalamus. Normal tectal plate and pineal gland. Normal midbrain, radha and medulla. Normal cerebellum. Normal basal cisterns. Normal bilateral temporal bones. Normal bilateral internal auditory canals. MRI/Brain W/WO Contrast IMPRESSION: Normal unenhanced and enhanced MRI of the brain. Electronically Signed: Tayler Gutiérrez MD at 10:19 EST Tel , Service support ,
== END ==
PROVIDERS: Family Provider Family Medicine; PCP Family Medicine; Referring Provider Family Medicine; Visit Provider Family Medicine
DX: H57.12 Ocular pain, left eye (principal)
CPT/HCPCS: 70553; A9575

== ENCOUNTER → 2020-06-26 | Outpatient (CLI) | payer BC, SELFPAY | END | disposition home or self-care (01) | PROVIDERS: PCP Family Medicine; Visit Provider Family Medicine | DX: J02.9 Acute pharyngitis, unspecified (principal) | CPT/HCPCS: 87880 ==

== ENCOUNTER → 2021-02-14 14:48 | Outpatient (CLI) | payer OTHER, SELFPAY ==
[2021-02-14 18:19] LABS: Free T3 2.1 pg/mL (2.18-3.98); T4 Free Direct 0.95 ng/dL (0.76-1.46); Thyroid Stim Hormone (TSH) 7.39 uIU/mL (0.358-3.74)
== END ==
PROVIDERS: PCP Family Medicine; Referring Provider Family Medicine; Visit Provider Family Medicine
DX: E03.9 Hypothyroidism, unspecified (principal)
CPT/HCPCS: 36415; 84439; 84443; 84481

== ENCOUNTER → 2021-08-20 08:45 | Outpatient (CLI) | payer OTHER, SELFPAY ==
[2021-08-20 10:45] LABS: Free T3 2.8 pg/mL (2.18-3.98); T4 Free Direct 0.75 ng/dL (0.76-1.46); T4 Total, Thyroxin 6.9 ug/dL (4.8-13.9)
== END ==
PROVIDERS: PCP Family Medicine; Visit Provider Obstetrics & Gynecology
DX: E03.9 Hypothyroidism, unspecified (principal)
CPT/HCPCS: 36415; 84436; 84439; 84443; 84481

== ENCOUNTER → 2021-08-29 07:01 | Outpatient (CLI) | payer OTHER, SELFPAY ==
--- NOTE | 2021-08-29 07:16 | US_ITS ---
STUDY: THYROID ULTRASOUND REASON FOR EXAM: Female, 31 years old. HYPOTHYROIDISM TECHNIQUE: Ultrasound evaluation of the thyroid was performed with real-time and static hart-scale imaging. COMPARISON: None. FINDINGS: RIGHT LOBE: The right lobe of the thyroid gland is slightly enlarged and measures 5 cm x 1.9 cm x 1.6 cm. There is a heterogeneous echotexture. There are no demonstrated solid, cystic or complex lesions. LEFT LOBE: The left lobe of the thyroid gland is slightly enlarged and measures 5 cm x 2.3 cm x 1.8 cm. There is a heterogeneous echotexture. There are no demonstrated solid, cystic or complex lesions. ISTHMUS: The isthmus measures 3 mm. 2 small benign-appearing lymph nodes are seen in the left cervical region. The larger measures 1.4 cm x 0.9 cm x 0.7 cm. US/Thyroid IMPRESSION: Heterogeneous enlargement of both lobes of the thyroid gland. 2. Small lymph nodes are seen in this left cervical region. Electronically Signed: Guillaume Cha MD at 13:23 EST , Service support ,
== END ==
PROVIDERS: PCP Family Medicine; Referring Provider Obstetrics & Gynecology; Visit Provider Obstetrics & Gynecology
DX: E03.9 Hypothyroidism, unspecified (principal)
CPT/HCPCS: 76536

== ENCOUNTER → 2021-08-30 10:19 | Outpatient (CLI) | payer OTHER, SELFPAY ==
[2021-08-31 10:50] LABS: Thyroid Peroxidase AB > 600 IU/mL (0-34)
== END ==
PROVIDERS: PCP Family Medicine; Visit Provider Obstetrics & Gynecology
DX: E03.9 Hypothyroidism, unspecified (principal); R53.83 Other fatigue
CPT/HCPCS: 36415; 86376

== ENCOUNTER → 2021-09-27 10:19 | Outpatient (CLI) | payer OTHER, SELFPAY ==
[2021-09-27 11:15] LABS: Free T3 2.5 pg/mL (2.18-3.98); T4 Free Direct 0.77 ng/dL (0.76-1.46)
[2021-09-28 14:28] LABS: Thyroid Peroxidase AB > 600 IU/mL (0-34)
[2021-09-29 08:54] LABS: T3 Total - Triiodothyronine 0.94 ng/mL (0.6-1.81)
== END ==
PROVIDERS: PCP Family Medicine; Visit Provider Obstetrics & Gynecology
DX: E06.3 Autoimmune thyroiditis (principal)
CPT/HCPCS: 36415; 84439; 84443; 84480; 84481; 84482; 86376

== ENCOUNTER 2022-05-18 17:43 | Emergency (ER) | payer OTHER, SELFPAY ==
[2022-05-18 17:43] VITALS: BP 122/85; PULSE 71; RESP 16; TEMP 36.8; O2SAT 100; BMI 27.3
--- NOTE | 2022-05-18 18:01 | EKG12_ITS ---
Test Reason : cp Blood Pressure : / mmHG Vent. Rate : 082 BPM Atrial Rate : 082 BPM P-R Int : 144 ms QRS Dur : 082 ms QT Int : 374 ms P-R-T Axes : 074 040 033 degrees QTc Int : 436 ms Normal sinus rhythm Normal ECG Confirmed by HERMINIA PORTILLO, MENG ([id number]), science editor IVIS ESPINOSA ([id number]) on 05/19/2022 1:11:41 PM Referred By: Confirmed By:MENG HOPE MD
--- NOTE | 2022-05-18 18:03 | EDS_ITS ---
HPI History of Present Illness Chief Complaint: Chest Pain Detail of Chief Complaint: Initial left pleuritic back pain now anterior pleuritic chest pain Informant: patient Onset/Context/Timing Onset: Hours (1600) Activity at onset: sudden Timing: Continuous and Intermittent (Back pain has resolved.) Quality: Positive for - (Sharp and pleuritic) Location: Left Chest (Anterior axillary line to left sternal border presently) Current Severity: Moderate Maximum Severity: Moderate Worsened By: Breathing; Not Worsened By Exertion, Movement of Arm, Movement of Torso, Eating or Palpation Relieved By: Nothing Associated Symptoms: Negative for Nausea, Vomiting, Diaphoresis, Dyspnea, Cough, Fever, Lightheadedness, Acid Reflux or Palpitations Narrative Prior Similar Symptoms: No Recent Illness/Hospitalization: No CVD Risk Factors: Negative for Hypertension, Diabetes, Hypercholesterolemia or Family History 1' </=55 PE Risk Factors: Negative for Recent Travel/Surgery, Recent Immobilization, Prior DVT or PE, Cancer or OCP + Smoking + >/=35 TAD Risk Factors: Negative for Marfan's Syndrome, Hypertension or Family History [facility] Medical History (Updated 05/18/22 @ 19:[address] Marck Sykes MD) Thyroid disorder Home Medications Fish Oil 05/18/22 [History Last Taken Unknown] Probiotic 05/18/22 [History Last Taken Unknown] Vitamin D3 05/18/22 [History Last Taken Unknown] multivitamin 1 tab PO DAILY 05/18/22 [History Last Taken Unknown] naproxen 500 mg tablet 500 mg PO BID #14 tabs 05/18/22 [Rx Last Taken Unknown] Allergy/AdvReac Type Severity Reaction Status Date / Time No Known Allergies Allergy Verified 05/18/22 17:47 Family History Mother Thyroid disorder Asthma Father Heart disease Sister Cancer bone Surgical History delivery delivered History of eyelid surgery History of tonsillectomy History of wisdom tooth extraction, class II edentulism Social History Smoking Status: Never smoker alcohol intake: never substance use type: does not use caffeine: No what type of physical activity do you participate in: walking seatbelt use: always do you feel safe at home: Yes additional social history: Renny Foley Patient works at [employer] ROS ROS ED Constitutional Constitutional ED: Denies chills, fever(s), subjective, sweats or weight loss Eyes Eyes: Denies blurry vision, change in vision or diplopia ENT ENT ED: Denies ear pain, rhinorrhea or sore throat Cardiovascular Cardiovascular: Reports as per HPI; Denies orthopnea or paroxysmal nocturnal dyspnea Respiratory/Chest Respiratory/Chest: Denies cough, dyspnea, dyspnea on exertion, orthopnea, paroxysmal nocturnal dyspnea or sputum Gastrointestinal Gastrointestinal: Denies abdominal pain, constipation, diarrhea or melena Genitourinary Genitourinary ED: Reports other Details: No history of renal or ureteral calculi ; Denies dysuria, hematuria or urinary frequency Musculoskeletal Musculoskeletal: Reports back pain; Denies arthralgias, myalgias or neck pain Neurologic Neurologic: Denies headache(s) or paresthesias Endocrine Endocrinology: Denies cold intolerance or heat intolerance Hematologic/Lymphatic Hematologic/Lymphatic: Denies easy bleeding or easy bruising EXAM Physical Exam Const Vital Signs: 05/18/22 17:43 05/18/22 17:55 05/18/22 19:11 Temperature 98.2 F Temperature Source Temporal Pulse Rate 71 67 Respiratory Rate 16 19 H Respiratory Effort Normal Non-Labored Respiratory Pattern Normal Blood Pressure 122/85 H 98/59 L Blood Pressure Mean 97 72 Pulse Ox 100 98 Oxygen Delivery Method Room Air Room Air Positive well nourished, well developed and obese; Negative for cachectic, contractures or unkempt General Appearance ED: well developed and NAD; Negative for unkempt, cachectic, contractures or pallor Nutritional Appearance: obese; Negative for cachectic HEENT Reports moist mucous membranes HEENT Narrative: Ears normal. Nares patent. Posterior pharynx out erythema or exudate. Uvula is midline. Eyes PERRL and EOMs intact bilaterally General Eye ED: Negative for pale conjunctiva or scleral icterus Neck no lymphadenopathy, supple and no JVD Chest Wall inspection of chest normal and palpation of chest normal Resp normal respiratory effort and clear to auscultation bilaterally Cardio regular rate, regular rhythm, S1 normal heart sound, S2 normal heart sound and no murmurs GI normal to inspection, nondistended, normoactive bowel sounds, soft to palpation, non-tender, non-distended and no masses; Negative for hepatosplenomegaly Back/Spine no CVA tenderness Extremity normal to inspection Extremity Narrative: There is no asymmetry, swelling, discoloration, leg vein distention, palpable cords or tenderness along the distribution of the deep venous system. General Extremety ED: Negative for edema, pulses abnormal or tenderness General Extremity: Negative for edema or pulses abnormal Neuro oriented x3, CN's II-XII intact bilaterally and no sensory deficits noted Sensorium / Orientation: awake Motor Exam: strength 5/5 throughout Psych mental status grossly normal Appearance: Negative for unkempt Skin no rashes or lesions noted and no wounds General Skin Exam: Negative for jaundice or pallor MDM MDM MDM Narrative Medical decision making narrative: Patient with pleuritic chest pain. Differential diagnosis is pleurisy, bronchitis, pneumonia, pulmonary embolus. Patient is PERC negative. D-dimer was not obtained. Chest x-ray was obtained to determine patient has pneumonia. If renal function is normal we will treat with NSAIDs. Patient was treated with NSAID since there is no contraindication. Lab Data Attestation: I reviewed the patient's lab results. Lab results narrative: CBC is unremarkable. test is negative. Basic metabolic panels are marked for slight elevation glucose of 128. Uncertain when patient last ate. Labs: Laboratory Results - last 24 hr 05/18/22 05/18/22 05/18/22 18:10 18:10 18:10 WBC 8.5 RBC 4.14 L Hgb 12.9 Hct 38.4 MCV 92.8 MCH 31.2 MCHC 33.6 RDW Std Deviation 43.4 RDW Coeff of Sandor 12.6 Plt Count 321 MPV 10.2 Immature Gran % (Auto) 0.200 Neut % (Auto) 59.2 Lymph % (Auto) 32.9 [place] % (Auto) 5.6 Eos % (Auto) 1.5 Baso % (Auto) 0.6 Absolute Neuts (auto) 5.1 Absolute Lymphs (auto) 2.81 Nucleated RBC % 0 Sodium 138 Potassium 4.0 Chloride 108 H Carbon Dioxide 28.0 Anion Gap 2 L BUN 22 H Creatinine 0.92 Estim Creat Clear Calc 61.89 Est GFR (MDRD) Af Amer 89 Est GFR (MDRD) Non-Af 74 BUN/Creatinine Ratio 23.8 H Glucose 128 H Calcium 9.2 Serum , Qual NEGATIVE Radiography Chest X-Ray - ED: 2 View and Read by ED Physician (Normal cardiac silhouette and size. Normal perihilar region. Normal lung parenchyma. Osseous structures are normal.) Diagnostic Testing: Clinical Impression(s) from Imaging Studies Chest X-Ray 05/18/22 18:30 IMPRESSION: There are no acute findings. Electronically Signed: Holland Sands MD at 18:56 EDT , EKG Initial EKG: Interpretation: Sinus Rhythm (Ventricular rate is 82. EKG is normal. OK interval is 144 ms. QS duration 82 ms. QT duration 3 and 74 ms. [place] is normal.) Discharge Plan Triage Chief Complaint: Chest Pain ED Provider: Marck Sykes Dx/Rx/DC Orders Clinical Impression: Pleurisy Instructions: ED Pleurisy Prescriptions: New naproxen 500 mg tablet 500 mg PO BID Qty: 14 0RF No Action multivitamin [Multi-Daily] Tablet 1 tab PO DAILY Fish Oil Probiotic Vitamin D3 Primary Care Provider: Carmelina Caraballo Referrals: Carmelina Caraballo MD [Primary Care Provider] - 3-5 Days if not improving
[2022-05-18 18:18] LABS: Absolute Lymphocyte Count 2.81 X10^3/uL (0.83-4.51); Absolute Neutrophil Count 5.1 X10^3/uL (2.0-7.7); Basophil# 0.05 X10^3/uL; Basophil% 0.6 % (0-1); Eosinophil# 0.13 X10^3/uL; Eosinophils% 1.5 % (0-5); Hematocrit 38.4 % (37-47); Hemoglobin 12.9 g/dL (12.0-15.0); Lymphocyte # 2.81 X10^3/ul (0.83-4.51); Lymphocyte % 32.9 % (19-41); Mean Corp Hgb Conc 33.6 g/dL (32-36); Mean Corpuscular Hgb 31.2 pg (27.0-32.0); Mean Corpuscular Volume 92.8 fL (81-99); Mean Platelet Vol. 10.2 fl (6.2-12.0); Monocyte# 0.48 X10^3/uL; Monocyte% 5.6 % (0-10); NRBC Flagged by Analyzer 0 % (0-5); Neutrophil # 5.05 X10^3/uL (2.7-7.7); Neutrophil % 59.2 % (47-70); Platelet Count 321 K/mm3 (150-450); RBC Distribution Width CV 12.6 % (11.6-14.6); RBC Distribution Width SD 43.4 fl (35.1-43.9); Red Blood Count 4.14 M/mm3 (4.2-5.4); White Blood Count 8.5 K/mm3 (4.4-11.0)
--- NOTE | 2022-05-18 18:30 | RAD_ITS ---
STUDY: X-RAY CHEST REASON FOR EXAM: Female, 32 years old. CHEST PAIN Left-sided pleuritic chest pain TECHNIQUE: XR Chest 2 Views COMPARISON: None FINDINGS: There is no demonstrated pleural abnormality. Normal size heart. Normal mediastinum and alex. Normal visualized pulmonary arteries. Normal visualized aortic arch and descending thoracic aorta. Normal visualized thoracic spine. Normal visualized ribs, clavicles, and shoulders. There is no demonstrated abnormality of the visualized soft tissue structures of the upper abdomen. RAD/Chest PA and Lateral IMPRESSION: There are no acute findings. Electronically Signed: Holland Sands MD at 18:56 EDT ,
[2022-05-18 18:31] LABS: Anion Gap 2 (5-15); BUN 22 mg/dL (7-18); BUN/Creat Ratio 23.8 RATIO (10-20); Calcium,Total 9.2 mg/dL (8.5-10.1); Chloride 108 mmol/L (98-107); Creatinine, Serum 0.92 mg/dL (0.55-1.02); EST Glomerular Filtration Rate 74 mL/min (>60); Est Glom Filt Rate - Afr Amer 89 mL/min (>60); Estimated Creatinine Clearance 61.89 ml/min; Glucose 128 mg/dL (74-106); Sodium Level 138 mmol/L (136-145)
[2022-05-18 19:11] VITALS: BP 98/59; PULSE 67; RESP 19; O2SAT 98
[2022-05-18 19:33] LABS: Internal QC Validated? YES +Cl - CLEAR BKGD; Pregnancy, Serum, hCG Quali. NEGATIVE Negative
[2022-05-18 20:09] VITALS: BP 100/62; PULSE 61; RESP 18; O2SAT 97
== END 2022-05-18 20:10 | disposition home or self-care (01) ==
LOC: ED 18:05
PROVIDERS: Emergency Provider Emergency Medicine; PCP Family Medicine; Visit Provider Emergency Medicine
DX: J18.9 Pneumonia, unspecified organism (principal); R09.1 Pleurisy; E66.9 Obesity, unspecified
CPT/HCPCS: 71046; 80048; 84703; 85025; 93005; 99284; A4216

== ENCOUNTER → 2023-02-03 | Outpatient (CLI) | payer OTHER, SELFPAY ==
[2023-02-03 15:37] LABS: Absolute Lymphocyte Count 2.81 X10^3/uL (0.83-4.51); Absolute Neutrophil Count 4.4 X10^3/uL (2.0-7.7); Basophil# 0.07 X10^3/uL; Basophil% 0.9 % (0-1); Eosinophil# 0.12 X10^3/uL; Eosinophils% 1.5 % (0-5); Hematocrit 40.4 % (37-47); Hemoglobin 13.3 g/dL (12.0-15.0); Lymphocyte # 2.81 X10^3/ul (0.83-4.51); Lymphocyte % 35.5 % (19-41); Mean Corp Hgb Conc 32.9 g/dL (32-36); Mean Corpuscular Hgb 30.9 pg (27.0-32.0); Mean Platelet Vol. 11.4 fl (6.2-12.0); Monocyte# 0.48 X10^3/uL; Monocyte% 6.1 % (0-10); NRBC Flagged by Analyzer 0 % (0-5); Neutrophil # 4.41 X10^3/uL (2.7-7.7); Neutrophil % 55.7 % (47-70); Platelet Count 326 K/mm3 (150-450); RBC Distribution Width CV 13.2 % (11.6-14.6); RBC Distribution Width SD 45.1 fl (35.1-43.9); White Blood Count 7.9 K/mm3 (4.4-11.0)
[2023-02-03 16:23] LABS: T3 Total - Triiodothyronine 0.91 ng/mL (0.6-1.81)
[2023-02-03 16:33] LABS: T4 Free Direct 0.84 ng/dL (0.76-1.46)
== END | disposition home or self-care (01) ==
LOC: MTLAB 12:43
PROVIDERS: PCP Family Medicine; Referring Provider Family Medicine; Visit Provider Family Medicine
DX: E03.9 Hypothyroidism, unspecified (principal); R42 Dizziness and giddiness
CPT/HCPCS: 36415; 84439; 84443; 84480; 85025

== ENCOUNTER → 2023-09-24 | Outpatient (CLI) | payer OTHER, SELFPAY ==
[2023-09-24 17:40] LABS: Absolute Lymphocyte Count 2.97 X10^3/uL (0.83-4.51); Absolute Neutrophil Count 4.6 X10^3/uL (2.0-7.7); Basophil# 0.06 X10^3/uL; Basophil% 0.7 % (0-1); Eosinophil# 0.16 X10^3/uL; Eosinophils% 1.9 % (0-5); Hemoglobin 12.4 g/dL (12.0-15.0); Lymphocyte # 2.97 X10^3/ul (0.83-4.51); Mean Corp Hgb Conc 32.6 g/dL (32-36); Mean Corpuscular Hgb 30.8 pg (27.0-32.0); Mean Corpuscular Volume 94.3 fL (81-99); Monocyte# 0.49 X10^3/uL; Monocyte% 5.9 % (0-10); NRBC Flagged by Analyzer 0 % (0-5); Neutrophil # 4.55 X10^3/uL (2.7-7.7); Neutrophil % 55.3 % (47-70); Platelet Count 338 K/mm3 (150-450); RBC Distribution Width CV 12.8 % (11.6-14.6); RBC Distribution Width SD 44.2 fl (35.1-43.9); Red Blood Count 4.03 M/mm3 (4.2-5.4); White Blood Count 8.3 K/mm3 (4.4-11.0)
[2023-09-24 18:33] LABS: ALB/GLOB Ratio 0.9 RATIO (0.9-2.4); AST(SGOT) 16 U/L (15-37); Alanine Aminotransfer ALT/SGPT 25 U/L (13-56); Albumin, Serum 3.5 g/dL (3.2-5.0); Alkaline Phosphatase 68 U/L (45-117); Anion Gap 3 (5-15); BUN 23 mg/dL (7-18); BUN/Creat Ratio 24.3 RATIO (10-20); Calcium,Total 9.1 mg/dL (8.5-10.1); Chloride 109 mmol/L (98-107); Creatinine, Serum 0.95 mg/dL (0.55-1.02); EST Glomerular Filtration Rate 71 mL/min (>60); Est Glom Filt Rate - Afr Amer 86 mL/min (>60); Free T3 2.3 pg/mL (2.18-3.98); Globulin 4.1 g/dL (2.2-4.2); Glucose 88 mg/dL (74-106); Potassium 4.3 mmol/L (3.5-5.1); Protein, Total 7.6 g/dL (6.4-8.2); Sodium Level 138 mmol/L (136-145); T4 Free Direct 0.89 ng/dL (0.76-1.46); Thyroid Stim Hormone (TSH) 9.37 uIU/mL (0.358-3.74)
[2023-09-27 15:07] LABS: Thyroglobulin Antibody 13.1 IU/mL (0.0-0.9); Thyroid Peroxidase AB 471 IU/mL (0-34)
== END | disposition home or self-care (01) ==
LOC: MTLAB 15:22
PROVIDERS: PCP Family Medicine; Referring Provider Family Medicine; Visit Provider Family Medicine
DX: E03.9 Hypothyroidism, unspecified (principal)
CPT/HCPCS: 36415; 80053; 84439; 84443; 84481; 85025; 86376; 86800

== ENCOUNTER → 2024-11-22 | Outpatient (CLI) | payer OTHER, SELFPAY ==
[2024-11-22 12:32] LABS: Absolute Lymphocyte Count 2.19 X10^3/uL (0.83-4.51); Absolute Neutrophil Count 5.4 X10^3/uL (2.0-7.7); Basophil# 0.05 X10^3/uL; Basophil% 0.6 % (0-1); Eosinophil# 0.06 X10^3/uL; Eosinophils% 0.7 % (0-5); Hematocrit 40.5 % (37-47); Hemoglobin 13.2 g/dL (12.0-15.0); Lymphocyte # 2.19 X10^3/ul (0.83-4.51); Lymphocyte % 26.6 % (19-41); Mean Corp Hgb Conc 32.6 g/dL (32-36); Mean Corpuscular Hgb 30.4 pg (27.0-32.0); Mean Corpuscular Volume 93.3 fL (81-99); Mean Platelet Vol. 11.2 fl (6.2-12.0); Monocyte# 0.56 X10^3/uL; Monocyte% 6.8 % (0-10); NRBC Flagged by Analyzer 0 % (0-5); Neutrophil # 5.35 X10^3/uL (2.7-7.7); Neutrophil % 64.9 % (47-70); Platelet Count 302 K/mm3 (150-450); RBC Distribution Width CV 12.9 % (11.6-14.6); RBC Distribution Width SD 44.2 fl (35.1-43.9); Red Blood Count 4.34 M/mm3 (4.2-5.4); White Blood Count 8.2 K/mm3 (4.4-11.0)
== END | disposition home or self-care (01) ==
LOC: MTLAB 10:02
PROVIDERS: PCP Family Medicine; Referring Provider Family Medicine; Visit Provider Family Medicine
DX: H92.02 Otalgia, left ear (principal); E03.8 Other specified hypothyroidism
CPT/HCPCS: 36415; 85025